=== PATIENT | male | born 1965 | race African-American/Black ===

== ENCOUNTER 2024-12-12 11:00 | Outpatient (RCR) | payer OTHER, SELFPAY ==
--- NOTE | 2024-09-13 17:15 | PTOPEVAL1 ---
Assessment and note entered by Odalis Ewing, PT Evaluation Information Assessment Status Evaluation Diagnosis M25.561, M25.562, 719.46, 338.29 ICD-10 Condition Codes (PT) Pain in right knee M25.561,Pain in left knee M25. 562,Pain in left ankle and joints of left foot M25 .572,Difficulty Walking R26.2,Abnormalities of gait and mobility R26.9,Weakness R53.1 Subjective Information Pt c/o chronic bilateral knee pain, He received multiple cortisone shot injections in the past; pt lives on the 3rd floor with 14 steps-stairs per level without handrails. States he was using a cane but the it broke when he fell on the stairs landing on the R side a week ago which has triggered a flare up of arthritis pain. Reports does not go out of the house unless for MD appointment due to increased pain when walking up/ down stairs. Reported Pain Level Pain Score 4,3: Self Report Assessment PT Clinical Summary Pt presents to therapy with c/o bilateral knee pain, swelling and weakness, X-rays reveal chronic osteoarthritis with bone spurs influencing pain levels, he also scored 10/80 on the LEFS which indicated severe functional limitation jules with tasks involving standing, squatting, walking on uneven ground and climbing stairs. Pt would benefit from skilled PT intervention to manage pain, improve joint mobility, functional strength, activity tolerance, gait training with appropriate AD and to reduce risk for falls. Plan of Care Interventions Check Out for Orthotic/Prosthetic,Electrical Stimulation,Gait Training,Hot Pack/Cold Pack, Manual Therapy,Neuro Re-education,Patient/ Caregiver Education,Therapeutic Activities, Therapeutic Exercise,Ultrasound,Other Other Interventions IASTM, Taping PT Services Indicated Yes Treatment Frequency and 1-2x/wk x 10 visits Duration These treatments will address the objective and functional deficits as defined above. The patient will be advanced safely and appropriately in order for the patient to progress towards his/her prior level of function. Additional exercises will be introduced and as well as a comprehensive home exercise program upon discharge, if needed, ?to ensure carryover of functional gains achieved in the clinic. This treatment plan has been reviewed and agreement upon by the patient.
--- NOTE | 2024-09-13 17:21 | OPREHPOC ---
Outpatient Therapy Plan of Care This is a Multidisciplinary Plan of Care that may contain components documented by all disciplines (PT, OT, and ST.) PT Problem 1 PT Problem #1 Knowledge Deficit PT Goal 1 Goal / Goal Update 1. Pt will demo good understanding of diagnosis and therapy prognosis. 2. Pt will perform HEPs to improve bilat knee strength and mobility. Target Visit 10 PT Problem 2 PT Problem #2 Pain PT Goal 1 Goal / Goal Update Pt will report 1-2/10 pain to bilateral knees with all ambulation tasks on various surfaces and stairs Target Visit 10 PT Problem 3 PT Problem #3 Impaired Range of Motion PT Goal 1 Goal / Goal Update Pt will demo WNL active knee ROM bilaterally. PT Problem 4 PT Problem #4 Impaired Strength PT Goal 1 Goal / Goal Update Pt will demo at least 4/5 MMT score or more to BLEs to improve standing and ambulation tolerance. Target Visit 10 PT Problem 5 PT Problem #5 Impaired Gait PT Goal 1 Goal / Goal Update Pt will perform normalized gait pattern with or without least restrictive AD noting improvement in gait mechanics and muscle control. Target Visit 10
--- NOTE | 2024-10-12 08:53 | PCPTNOTE ---
Pt canceled his appointment in [facility] with no reason given.
--- NOTE | 2024-10-24 11:38 | PCPTNOTE ---
Pt canceled today's PT session due to having a fall and hurting his knee due to the fall. Pt's knee is now swollen and he is having trouble walking on it.
--- NOTE | 2024-11-07 13:41 | PTOPPROG ---
Assessment and note entered by Arlen Granger, PT Evaluation Information Assessment Status Progress Diagnosis M25.561, M25.562, 719.46, 338.29 ICD-10 Condition Codes (PT) Pain in right knee M25.561,Pain in left knee M25. 562,Pain in left ankle and joints of left foot M25 .572,Difficulty Walking R26.2,Abnormalities of gait and mobility R26.9,Weakness R53.1 Subjective Information Pt reports basic strength is improved. Better outlook wiht penitentiary treatment and what to expect. Pain levels fluctuate. Using the cane about the same as previously Stairs are not improved as of yet, especially going down steps. Reports exercises are going well. No increased pain or difficulty with these Pt reports was getting steroid shots a coupe times a year from 2018- and decided not to anymore and would do a joint replacement. Still wants to go conservative at the moment Reports also noted numbness and tingling between first and second toes on left foot only for about a week now. Assessment PT Clinical Summary Pt presents after attending 8 sessions of therapy for irving knee pain. Significant history of arthritis was receiving steroid shots that were minimally effective. Is considering total knee replacement but would like to continue conservative treatment for now. He shows improvement in ROM R>L, reports feeling improvement overall in his strength as well. However continues to demonstrate significant weakness in BLEs L>R, LEFS scores for perceived disability are grossly the same, and patient cont to require cane for ambulation and has difficulty with stairs. Special testing shows severely reduced patellar motion, and instability to valgus /varus stretch irving knees at 30 degrees. Pt will benefit from therapy with a shift in focus to aggressive patellar and joint mobilization, moderate to high intensity stretching, and focused strengthening LEs to improve function and reduce pain. Plan of Care Interventions Check Out for Orthotic/Prosthetic,Electrical Stimulation,Gait Training,Hot Pack/Cold Pack, Intermittent Compression Pump,Manual Therapy,Neuro Re-education,Patient/Caregiver Education, Therapeutic Activities,Therapeutic Exercise,Self- Care/Home Management,Ultrasound,Other Other Interventions Knee Bracing, taping, TENS unit PT Services Indicated Yes Treatment Frequency and 1-2x weekly x 8 visits Duration These treatments will address the objective and functional deficits as defined above. The patient will be advanced safely and appropriately in order for the patient to progress towards his/her prior level of function. Additional exercises will be introduced and as well as a comprehensive home exercise program upon discharge, if needed, ?to ensure carryover of functional gains achieved in the clinic. This treatment plan has been reviewed and agreement upon by the patient.
--- NOTE | 2024-11-07 13:41 | OPREHPOC ---
Outpatient Therapy Plan of Care This is a Multidisciplinary Plan of Care that may contain components documented by all disciplines (PT, OT, and ST.) PT Problem 1 PT Problem #1 Knowledge Deficit PT Goal 1 Goal / Goal Update 1. Pt will demo good understanding of diagnosis and therapy prognosis. 2. Pt will perform HEPs to improve bilat knee strength and mobility. Target Visit 10 Progress Met PT Problem 2 PT Problem #2 Pain PT Goal 1 Goal / Goal Update Pt will report 3/10 pain to bilateral knees with all ambulation tasks on various surfaces and stairs Target Visit 16 Progress Not Met PT Problem 3 PT Problem #3 Impaired Range of Motion PT Goal 1 Goal / Goal Update Pt will demo WNL active knee ROM bilaterally. Target Visit 16 Progress Not Met PT Problem 4 PT Problem #4 Impaired Strength PT Goal 1 Goal / Goal Update Pt will demo at least 4/5 MMT score or more to BLEs to improve standing and ambulation tolerance. Target Visit 16 Progress Not Met PT Problem 5 PT Problem #5 Impaired Gait PT Goal 1 Goal / Goal Update Pt will perform normalized gait pattern with or without least restrictive AD noting improvement in gait mechanics and muscle control. Target Visit 16 Progress Not Met
--- NOTE | 2024-11-17 16:15 | PCPTNOTE ---
Pt cancelled appt day of in the [place]. No reason given.
== END 2024-12-12 23:59 | disposition home or self-care (01) ==
LOC: ANHHIPT 11:00
DX: M25.561 Pain in right knee (principal); M25.562 Pain in left knee
CPT/HCPCS: 97014; 97110; 97112; 97116; 97140; 97161; 97530; 97750; G0283

== ENCOUNTER 2024-12-19 16:07 | Outpatient (RCR) | payer OTHER, SELFPAY ==
--- NOTE | 2025-01-04 14:10 | PTOPDC ---
Assessment and note entered by Arlen Granger, PT Evaluation Information Assessment Status Discharge - Pt Not Present Diagnosis M25.561, M25.562, 719.46, 338.29 ICD-10 Condition Codes (PT) Pain in right knee M25.561,Pain in left knee M25. 562,Pain in left ankle and joints of left foot M25 .572,Difficulty Walking R26.2,Abnormalities of gait and mobility R26.9,Weakness R53.1 Subjective Information Pt reports basic strength is improved. Better outlook wiht long term care social worker treatment and what to expect. Pain levels fluctuate. Using the cane about the same as previously Stairs are not improved as of yet, especially going down steps. Reports exercises are going well. No increased pain or difficulty with these Pt reports was getting steroid shots a coupe times a year from 2018- and decided not to anymore and would do a joint replacement. Still wants to go conservative at the moment Reports also noted numbness and tingling between first and second toes on left foot only for about a week now. Assessment PT Clinical Summary Pt attended 13 visits of therapy over a 15 week plan for irving knee pain, with visits occasionally having gaps between of a week or more. Pt has received irving offloading knee braces to assist with discomfort in ambulation and function. Recently office was unable to obtain further authorization for continued therapy, thus patient requested discharge and will return with a new prescription. Thus patient is being discharged from current POC . Plan of Care PT Services Indicated No
== END 2025-01-04 14:16 | disposition home or self-care (01) ==
LOC: ANHHIPT 16:07
DX: M25.561 Pain in right knee (principal); M25.562 Pain in left knee
CPT/HCPCS: 97014; 97110; 97140; G0283